=== PATIENT | male | born 1950 | race Caucasian/White ===

== ENCOUNTER 2020-05-08 06:31 | Day surgery (SDC) | payer MEDICARE, OTHER ==
[2020-05-08] MEDS ORDERED: Sodium Chloride 0.9% 1,000 ML IV SCH (07:30)
[2020-05-08] MEDS ORDERED: Midazolam 1 MG/ML 2 ML SDV ONE (07:35)
[2020-05-08] MEDS ORDERED: Propofol 200 MG/20 ML SDV ONE ×2 (07:35→08:03)
[2020-05-08] MEDS ORDERED: fentaNYL 100 MCG/2 ML SDV ONE (07:35)
--- NOTE | 2020-05-08 11:14 | OR ---
DATE OF PROCEDURE: 05/08/2020 SURGEON: Michael Nguyen MD PROCEDURES: 1. Esophagogastroduodenoscopy. 2. Colonoscopy. FINDINGS: 1. Plaque-like area in the distal esophagus (biopsied using cold biopsy forceps, and in the remaining 3 quadrants also using pulse using cold biopsy forceps). 2. Normal colonoscopy. COMPLICATIONS: None. MAPPING SUPERVISOR: None. PREOPERATIVE DIAGNOSIS: 1. Dysphagia. 2. Screening colonoscopy. POSTOPERATIVE DIAGNOSIS: 1. Dysphagia. 2. Screening colonoscopy. RISKS: Risks, benefits, alternatives, and limitations including, but not limited to infection, bleeding, and perforation were explained to the patient, who wished to proceed. PROCEDURE IN DETAIL: The patient was placed in left lateral decubitus position. The EGD scope was introduced and advanced atraumatically to the second part of the duodenum. Within the duodenum, there was no evidence of ulceration. No blood. No duodenitis. Within the stomach itself, there was no significant gastritis, ulceration, or old or new blood. At the GE junction, there was a plaque-like area encompassing less than 20% of the circumference, so this was biopsied multiple times using cold biopsy forceps. The remaining 3 quadrants were also biopsied using cold biopsy forceps. Remainder of the esophagus was normal. Digital rectal exam was performed next. The scope was introduced and advanced atraumatically to the ileocecal valve. A photo was taken. The scope was brought back to the ascending, transverse, descending colon, and retroflexed. No evidence of old or new blood. No masses. No polyps. No evidence of colitis. No abnormalities on retroflexion. Greater than 8 minutes by removing the scope. The patient tolerated the procedure well. Michael Nguyen MD /[id number]
--- OUTSIDE RECORDS SUMMARY | 2020-05-08 12:27 | XMSREPORT | Referral Summary ---
:[address] [facility] Address [address] [place] [address] Care Team Providers Name Role Phone Provider, Attributed RESOURCE Attributed Provider Unavailab le Reason for Referral Transitions of Care (Routine) Status Reason Specialty Diagnoses / Referred By Referred To Procedures Contact Contact New Request Patient Diagnoses Medicare annual wellness visit, [facility] Annette Middleton, [address] [place] [address] [address] [address] Phone: [place] [phone] Fax: Reason for Visit Reason Comments AWV-Annual Medicare Wellness Visit Encounter Details Date Type Department Care Team Description 04/23/2020 [facility], [facility] ([facility] Clinic Family Jennifer michael MD Obstructive sleep apnea; [address] Dyslipidemia; [place] [address] [place] Essential hypertension [phone] Allergies No Known Allergiesdocumented as of this encounter (statuses as of 04/23/2020) Medications Medication Sig Dispensed Refills Start Date End Date Status atorvaSTATin (LIPITOR) 0 02/21/2020 Active 40 mg tablet amLODIPine (NORVASC) 5 0 03/12/2020 Active mg tablet loperamide (IMODIUM Take as directed 0 05/19/2017 Active A-D) 2 MG tablet as needed aspirin (ECOTRIN LOW Take 81 mg by 0 09/26/2017 Active STRENGTH) 81 MG mouth enteric coated tablet omega-3 fatty acids Take 1,200 mg by 0 09/26/2017 Active (FISH OIL) 1200 mg mouth capsule documented as of this encounter (statuses as of 04/23/2020) Active Problems Patient Care Coordination Note reviewed Problem Noted Date Left ureteral stone 05/23/2017 Family history of diabetes mellitus (DM) 07/23/2016 Hemorrhoids 06/20/2012 Overweight 01/23/2010 Elevated blood sugar 09/26/2009 Sleep apnea 09/12/2009 Overview: Overview: Sleep study 2008; CPAP ordered. Hyperlipidemia 10/11/2008 Plantar fasciitis 10/11/2008 Snoring 10/11/2008 documented as of this encounter (statuses as of 04/23/2020) Immunizations Name Administration Dates Next Due Pneumococcal Conj PCV13 07/21/2015 Pneumococcal Polysaccharide PPSV23 07/25/2018 TDAP 08/31/2010 Zoster Live(Zostavax) 09/06/2014 Zoster Recombinant (Shingrix) 05/26/2018, 02/20/2018 documented as of this encounter Social History Tobacco Use Types Packs/Day Years Used Date Former Smoker Smokeless Tobacco: Never Used Alcohol Use Drinks/Week oz/Week Comments Yes Alcohol Habits Answer Date Recorded How often do you have a drink containing alcohol? 2-3 times a week 04/23/2020 How many drinks containing alcohol do you have on a 1 or 2 04/23/2020 typical day when you are drinking? How often do you have six or more drinks on one Never 04/23/2020 occasion? Social Isolation Answer Date Recorded In a typical week, how many times do you talk on Twice a wee k 04/23/2020 the phone with family, friends, or neighbors? How often do you get together with friends or Twice a week 04/23/2020 relatives? How often do you attend congregational or confucianist 1 to 4 times per year 04/23/2020 services? Do you belong to any clubs or organizations such No 04/23/2020 as congregational groups, unions, fraternal or athletic groups, or school groups? How often do you attend meetings of the clubs or Never 04/23/2020 organizations you belong to? Are you now , , , 04/23/2020 , never or living with a partner? Physical Activity Answer Date Recorded On average, how many days per week do you engage in moderate to 7 days 04/23/2020 strenuous exercise (like walking fast, running, jogging, dancing, swimming, biking, or other activities that cause a light or heavy sweat)? On average, how many minutes do you engage in exercise at th is 120 min 04/23/2020 level? Stress Answer Date Recorded Do you feel stress - tense, restless, nervous, or anxious, N ot at all 04/23/2020 or unable to sleep at night because your mind is troubled all the time - these days? Financial Resource Strain Answer Date Recorded How hard is it for you to pay for the very basics like Not v hector hard 04/23/2020 food, housing, medical care, and heating? Intimate Partner Violence Answer Date Recorded Within the last year, have you been afraid of your partner o r No 04/23/2020 ex-partner? Within the last year, have you been humiliated or emotionall y No 04/23/2020 abused in other ways by your partner or ex-partner? Within the last year, have you been kicked, hit, slapped, or No 04/23/2020 otherwise physically hurt by your partner or ex-partner? Within the last year, have you been raped or forced to have any No 04/23/2020 kind of sexual activity by your partner or ex-partner? Food Insecurity Answer Date Recorded Within the past 12 months, you worried that your food would Never true 04/23/2020 run out before you got money to buy more. Within the past 12 months, the food you bought just didn't N ever true 04/23/2020 last and you didn't have money to get more. Transportation Needs Answer Date Recorded In the past 12 months, has lack of transportation kept you f rom No 04/23/2020 medical appointments or from getting medications? In the past 12 months, has lack of transportation kept you f rom No 04/23/2020 meetings, work, or getting things needed for daily living? Sexually Active Control Partners Comments Never Female Sex Assigned at Date Recorded Not on file documented as of this encounter Last Filed Vital Signs Vital Sign Reading Time Taken Comments Blood Pressure 124/66 04/23/2020 8:20 AM PRODUCT REPRESENTATIVE Pulse 77 04/23/2020 8:20 AM PRODUCT REPRESENTATIVE Temperature 36.3 C (97.3 F) 04/23/2020 8:20 AM PRODUCT REPRESENTATIVE Respiratory Rate - - Oxygen Saturation 96% 04/23/2020 8:20 AM PRODUCT REPRESENTATIVE Inhaled Oxygen Concentration - - Weight 82.7 kg (182 lb 4.8 oz) 04/23/2020 8:20 AM PRODUCT REPRESENTATIVE Height - - Body Mass Index 29.42 09/13/2017 10:56 AM CDT documented in this encounter Functional Status Functional Status Response Date of Assessment Do you have difficulty with walking, balance, climbing No 04/23/2020 stairs, or had a fall in the last 3 months? documented as of this encounter Plan of Treatment Name Type Priority [facility] Diagnoses [facility] Referral Routine Medicare annual wellness Ordered: 04/23/2020 ENDOSCOPY NON ONE CHART visit, subsequent documented as of this encounter Visit Diagnoses Diagnosis Medicare annual wellness visit, subseque nt - Primary Routine general medical examination at a health care facility Obstructive sleep apnea Obstructive sleep apnea (adult) (pediatr ic) Dyslipidemia Other and unspecified hyperlipidemia Essential hypertension Unspecified essential hypertension documented in this encounter
== END 2020-05-08 10:48 | disposition home or self-care (01) ==
LOC: JP.SDS 06:31
PROVIDERS: ATTEND Surgery
DX: Z12.11 Encounter for screening for malignant neoplasm of colon (principal); R13.10 Dysphagia, unspecified
CPT/HCPCS: 88305; J2250; J2704; J3010; J7030

== ENCOUNTER 2023-12-02 14:44 | Emergency (ER) | payer MEDICARE, OTHER | END 2023-12-02 15:50 | disposition home or self-care (01) | LOC: JP.ED 14:44 | DX: T78.40XA Allergy, unspecified, initial encounter (principal); E78.00 Pure hypercholesterolemia, unspecified; Z79.899 Other long term (current) drug therapy; Z79.84 Long term (current) use of oral hypoglycemic drugs | CPT/HCPCS: 99283 ==